=== PATIENT | male | born 1995 | race Asian ===

== ENCOUNTER 2019-02-01 01:21 | Emergency (ER) | payer MEDICAID ==
[~2019-02-01] VITALS: Ht 190.5 cm; Wt 106.6 kg
[2019-02-01 01:35] VITALS: BP_SYST 150
[2019-02-01 02:45] VITALS: BP_SYST 145
== END 2019-02-01 02:45 | disposition home or self-care (01) ==
LOC: SED 01:21
DX: S62.396A Other fracture of fifth metacarpal bone, right hand, initial encounter for closed fracture (principal); M24.411 Recurrent dislocation, right shoulder; J45.909 Unspecified asthma, uncomplicated; Z76.5 Malingerer [conscious simulation]; Z88.6 Allergy status to analgesic agent; Z88.8 Allergy status to other drugs, medicaments and biological substances; Z91.041 Radiographic dye allergy status; W23.0XXA Caught, crushed, jammed, or pinched between moving objects, initial encounter; Y93.89 Activity, other specified; Y92.89 Other specified places as the place of occurrence of the external cause; Y99.8 Other external cause status
CPT/HCPCS: 73030; 99283